=== PATIENT | male | born 1985 | race Caucasian/White ===

== ENCOUNTER 2017-09-06 09:43 | Emergency (ER) | payer OTHER ==
[~2017-09-06] VITALS: Ht 177.8 cm; Wt 70.5 kg
[2017-09-06 09:55] VITALS: BP 125/75; PULSE 75; RESP 18; TEMP 98.7; O2SAT 98
--- NOTE | 2017-09-06 10:11 | PD ---
HPI Chief Complaint: Skin Problem Time Seen by Provider: 10:01 Travel History International Travel<30 days: No Contact w/Intl Traveler<30days: No Traveled to known affect area: No History of Present Illness HPI 31-year-old male came to the emergency room with multiple skin infections that started 3 days ago. Patient says that he has noticed many of them appearing at the same time all over his body. Patient relapsed into IV drug abuse about a week ago. He says he stopped using 3-4 days ago and around that time is when he noticed the skin infection. He has history of cellulitis in the past. No history of MRSA that he knows of. Upon asking he says that he has been feeling some chills. However his vital signs in triage have been stable. He is otherwise a relatively healthy person. Patient was concerned about MRSA or cellulitis after he looked up his symptoms on the Internet. He is not in any withdrawal currently. PFSH Past Medical History Narrative Medical List of his past medical, surgical, social and family history is reviewed from the nursing note Social History Tobacco Use: Yes Substance Use: Yes Allergies-Medications (Allergen,Severity, Reaction): Coded Allergies: No Known Allergies (Unverified , 09/06/17) Comments No known drug allergies. Reported Meds & Prescriptions Reported Meds & Active Scripts Active Bactrim DS (Sulfamethoxazole-Trimethoprim) 800-160 Mg Tab 1 Tab PO BID Narrative Medication List of his home medications reviewed from the nursing note Review of Systems Except as stated in HPI: all other systems reviewed are Neg Skin: Positive Rash Physical Exam Narrative GENERAL: Awake, alert, no obvious distress SKIN: Focused skin assessment warm/dry. Multiple impetiginous, honey crusted skin lesions of varying size generalized. The largest one is 3 cm in diameter. Couple of them have been deroofed and has a superficial ulcer on the knee. Most of them are dry. HEAD: Atraumatic. Normocephalic. EYES: Pupils equal and round. No scleral icterus. No injection or drainage. ENT: No nasal bleeding or discharge. Mucous membranes pink and moist. NECK: Trachea midline. No JVD. CARDIOVASCULAR: Regular rate and rhythm. No murmur appreciated. RESPIRATORY: No accessory muscle use. Clear to auscultation. Breath sounds equal bilaterally. GASTROINTESTINAL: Abdomen soft, non-tender, nondistended. Hepatic and splenic margins not palpable. MUSCULOSKELETAL: No obvious deformities. No clubbing. No cyanosis. No edema. NEUROLOGICAL: Awake and alert. No obvious cranial nerve deficits. Motor grossly within normal limits. Normal speech. PSYCHIATRIC: Appropriate mood and affect; insight and judgment normal. Data Data Last Documented VS Orders Orders Ed Discharge Order (09/06/17 10:19) Wound Culture And Gram Stain (09/06/17 10:27) MDM Medical Decision Making Medical Screen Exam Complete: Yes Emergency Medical Condition: Yes Medical Record Reviewed: Yes Differential Diagnosis Impetigo, disseminated staphylococcal skin infection, IV drug Narrative Course 10:25 AM wound culture was collected. Vital signs are stable. I am comfortable sending the patient home on Bactrim prescription. I lectured him regarding IV drug abuse that can lead to more serious systemic skin paras infection like bacterial endocarditis, cerebral abscess etc. I have tried to impress upon the fact that he should stay away from IV drug abuse and I think patient has understood. I am comfortable discharging him home. Procedures EKG Prior to Arrival: No Diagnosis Primary Impression: IV drug abuse Additional Impressions: Disseminated staphylococcal skin infection Impetigo Referrals: [facility] Additional Instructions: Take the medication as per the prescription direction. Return to the ER if condition worsens or any other new concerns. You must stop injecting IV drugs since it will make the condition worse. Follow-up at the [facility] [place] whose address has been given to you. He should go to the department of health and be tested for HIV and hepatitis B and C as well. Med/Other Pt SpecificInfo: Prescription(s) given Scripts Sulfamethoxazole-Trimethoprim (Bactrim DS) 800-160 Mg Tab 1 TAB PO BID for Infection, #20 TAB 0 Refills Prov: Adele Hernandez MD 09/06/17 Disposition: DISCHARGE HOME Condition: Stable Adele Hernandez MD Sep 06, 2017 10:11
[2017-09-06] MEDS ORDERED: BACT800T5 PO (10:21)
== END 2017-09-06 10:31 | disposition home or self-care (01) ==
LOC: NEPD 09:43
DX: F19.10 Other psychoactive substance abuse, uncomplicated (principal); L01.00 Impetigo, unspecified; B95.8 Unspecified staphylococcus as the cause of diseases classified elsewhere
CPT/HCPCS: 87070; 99283